=== PATIENT | male | born 1975 | race Caucasian/White ===

== ENCOUNTER → 2020-03-08 | Day surgery (SDC) | payer OTHER ==
[~2020-03-08] MED LIST: B COMPLEX-FOLI1 EACH PO; BACTRIM DS TAB1 EACH PO; CARVEDILOL25 MG PO; DIPHENOXYLATE-1 EACH PO; FLOMAX0.4 MG PO; GLIPIZIDE ER5 MG PO; GLUCERNA237 ML PO; HUMALOG 10100 UNITS/ SC; KEFLEX500 MG PO; LANTUS INS100 UTS/M1 SC; LISINOPRIL5 MG PO; METFORMIN HCL1000 M1 PO; PROZAC40 MG PO; SIMVASTATIN20 MG PO; THERA-M CAPLET1 EACH PO; VITAMIN B-625 MG PO; VITAMIN D31250 MCG PO; ZYVOX600 MG PO
== END | disposition home or self-care (01) ==
LOC: OR 12:22
DX: N13.30 Unspecified hydronephrosis (principal); Z53.8 Procedure and treatment not carried out for other reasons; E11.65 Type 2 diabetes mellitus with hyperglycemia; R33.9 Retention of urine, unspecified; R31.9 Hematuria, unspecified; F41.9 Anxiety disorder, unspecified; I10 Essential (primary) hypertension; Z79.84 Long term (current) use of oral hypoglycemic drugs; Z79.899 Other long term (current) drug therapy
CPT/HCPCS: 82962; J1956; J7030

== ENCOUNTER → 2020-04-19 | Day surgery (SDC) | payer OTHER | END | disposition home or self-care (01) | LOC: OR 11:38 | DX: N13.30 Unspecified hydronephrosis (principal); E66.01 Morbid (severe) obesity due to excess calories; I10 Essential (primary) hypertension; Z79.899 Other long term (current) drug therapy; Z80.3 Family history of malignant neoplasm of breast; Z83.3 Family history of diabetes mellitus | CPT/HCPCS: 82962; C1769; C1894; C2617; J1100; J1956; J2001; J2250; J2405; J2704; J3010; J7030; J7040; J7120; Q9962 ==

== ENCOUNTER 2020-05-19 10:07 | Inpatient (IN) | payer OTHER ==
[~2020-05-19] VITALS: Ht 190.5 cm; Wt 148.3 kg
[~2020-05-19 10:07] MED LIST changes: -B COMPLEX-FOLI1 EACH PO; -BACTRIM DS TAB1 EACH PO; -DIPHENOXYLATE-1 EACH PO; -GLUCERNA237 ML PO; -HUMALOG 10100 UNITS/ SC; -LANTUS INS100 UTS/M1 SC; -SIMVASTATIN20 MG PO; -THERA-M CAPLET1 EACH PO; -VITAMIN B-625 MG PO; -ZYVOX600 MG PO
[2020-05-19 10:41] LABS: HEMOGLOBIN 11.2 gm/dl (14.0-17.5); RED BLOOD COUNT 4.19 M/UL (4.20-5.50); WHITE BLOOD COUNT 19.3 K/UL (4.5-11.0)
[2020-05-19 11:05] LABS: BUN/CREATININE RATIO 13 (0-10)
[2020-05-19] MEDS ORDERED: SIMVASTATIN20 MG PO (12:45)
[2020-05-19 15:40] LABS: BUN/CREATININE RATIO 13 (0-10)
[2020-05-20 04:59] LABS: WHITE BLOOD COUNT 20.1 K/UL (4.5-11.0)
[2020-05-20 05:08] LABS: HEMOGLOBIN 9.2 gm/dl (14.0-17.5); RED BLOOD COUNT 3.49 M/UL (4.20-5.50)
[2020-05-20 22:55] LABS: CAMPYLOBACTER Not Detected (Negative); CLOSTRIDIUM DIFFICILE TOX A/B Not Detected (Negative); PLESIOMONAS SHIGELLOIDES Not Detected (Negative)
[2020-05-20 22:56] LABS: ADENOVIRUS F 40/41 Not Detected (Negative); ASTROVIRUS Not Detected (Negative); CRYPTOSPORIDIUM Not Detected (Negative); E.COLI 0157 Not Detected (Negative); ENTAMOEBA HISTOLYTICA Not Detected (Negative); ENTEROAGGREGATIVE E.COLI (EAEC Not Detected (Negative); ENTEROPATHOGENIC E.COLI (EPEC) Not Detected (Negative); ENTEROTOXIGENIC E.COLI (ETEC) Not Detected (Negative); GIARDIA LAMBLIA Not Detected (Negative); NOROVIRUS GI/GII Not Detected (Negative); ROTOVIRUS A Not Detected (Negative); SALMONELLA Not Detected (Negative); SAPOVIRUS Not Detected (Negative); SHIG/ENTEROINVAS.ECOLI (EIEC) Not Detected (Negative); SHIGA-LIK TOX.PRO.E.COLI (STEC Not Detected (Negative); VIBRIO Not Detected (Negative); VIBRIO CHOLERAE Not Detected (Negative); YERSINIA ENTEROCOLITICA Not Detected (Negative)
[2020-05-21 05:09] LABS: HEMOGLOBIN 9.2 gm/dl (14.0-17.5); RED BLOOD COUNT 3.5 M/UL (4.20-5.50); WHITE BLOOD COUNT 18.3 K/UL (4.5-11.0)
[2020-05-21 05:58] LABS: BUN/CREATININE RATIO 17 (0-10)
[2020-05-22 04:43] LABS: BUN/CREATININE RATIO 12 (0-10)
[2020-05-22 04:50] LABS: HEMOGLOBIN 9.3 gm/dl (14.0-17.5); RED BLOOD COUNT 3.61 M/UL (4.20-5.50); WHITE BLOOD COUNT 17.3 K/UL (4.5-11.0)
[2020-05-23 06:20] LABS: HEMOGLOBIN 9.8 gm/dl (14.0-17.5); RED BLOOD COUNT 3.73 M/UL (4.20-5.50); WHITE BLOOD COUNT 18.1 K/UL (4.5-11.0)
[2020-05-23 06:43] LABS: BUN/CREATININE RATIO 11 (0-10)
[2020-05-24 03:46] LABS: RED BLOOD COUNT 3.41 M/UL (4.20-5.50); WHITE BLOOD COUNT 16.4 K/UL (4.5-11.0)
[2020-05-24 04:40] LABS: BUN/CREATININE RATIO 14 (0-10)
[2020-05-25 06:35] LABS: HEMOGLOBIN 9.5 gm/dl (14.0-17.5); RED BLOOD COUNT 3.65 M/UL (4.20-5.50); WHITE BLOOD COUNT 13.5 K/UL (4.5-11.0)
[2020-05-25 07:00] LABS: BUN/CREATININE RATIO 15 (0-10)
[2020-05-26 03:36] LABS: HEMOGLOBIN 9.2 gm/dl (14.0-17.5); RED BLOOD COUNT 3.55 M/UL (4.20-5.50); WHITE BLOOD COUNT 10.6 K/UL (4.5-11.0)
[2020-05-26 03:59] LABS: BUN/CREATININE RATIO 17 (0-10)
[2020-05-27 04:25] LABS: RED BLOOD COUNT 3.8 M/UL (4.20-5.50); WHITE BLOOD COUNT 10.1 K/UL (4.5-11.0)
[2020-05-27 04:48] LABS: BUN/CREATININE RATIO 15 (0-10)
--- NOTE | 2020-05-27 04:54 | NUR ---
PER [facility], JOHNSON TO GIVE VANCOMYCIN DOSE WITH TROUGH OF 20.8
[2020-05-28 03:42] LABS: HEMOGLOBIN 9.9 gm/dl (14.0-17.5); RED BLOOD COUNT 3.79 M/UL (4.20-5.50); WHITE BLOOD COUNT 10.4 K/UL (4.5-11.0)
[2020-05-28 04:02] LABS: BUN/CREATININE RATIO 17 (0-10)
[2020-05-29 03:26] LABS: RED BLOOD COUNT 3.82 M/UL (4.20-5.50); WHITE BLOOD COUNT 8.6 K/UL (4.5-11.0)
[2020-05-29 03:46] LABS: BUN/CREATININE RATIO 16 (0-10)
[2020-05-30 04:36] LABS: BUN/CREATININE RATIO 21 (0-10)
[2020-05-31 06:08] LABS: BUN/CREATININE RATIO 19 (0-10)
[2020-06-01 09:08] LABS: BUN/CREATININE RATIO 17 (0-10)
[2020-06-01] MEDS ORDERED: ZYVOX600 MG PO (09:35)
[2020-06-01] MEDS ORDERED: THERA-M CAPLET1 EACH PO (09:35)
[2020-06-01] MEDS ORDERED: VITAMIN B-625 MG PO (09:35)
[2020-06-01] MEDS ORDERED: BACTRIM DS TAB1 EACH PO (09:35)
[2020-06-01] MEDS ORDERED: GLUCERNA237 ML PO (09:35)
[2020-06-01] MEDS ORDERED: DIPHENOXYLATE-1 EACH PO (09:47)
[2020-06-01] MEDS ORDERED: HUMALOG 10100 UNITS/ SC (09:47)
[2020-06-01] MEDS ORDERED: LANTUS INS100 UTS/M1 SC (09:47)
[2020-06-01] MEDS ORDERED: B COMPLEX-FOLI1 EACH PO (09:57)
[2020-06-05] MEDS ORDERED: ZYVOX600 MG PO (12:20)
[2020-06-06 07:07] LABS: RED BLOOD COUNT 3.72 M/UL (4.20-5.50); WHITE BLOOD COUNT 7.7 K/UL (4.5-11.0)
[2020-06-06 07:27] LABS: BUN/CREATININE RATIO 21 (0-10)
[2020-06-07 03:12] LABS: HEMOGLOBIN 10.1 gm/dl (14.0-17.5); RED BLOOD COUNT 3.8 M/UL (4.20-5.50); WHITE BLOOD COUNT 6.6 K/UL (4.5-11.0)
[2020-06-07 03:23] LABS: BUN/CREATININE RATIO 23 (0-10)
== END 2020-06-10 14:37 | DRG 872 ==
LOC: ER1 10:07 → PROG CARE 12:54 → MED SURG 4 12:54 → CDU 12:54 → PROG CARE 15:20 → MED SURG 4 05-21 20:00
PROVIDERS: Emergency Medicine; Internal Medicine; ADMIT Internal Medicine
PROC: B24BZZ4 Ultrasonography of Heart with Aorta, Transesophageal (ICD-10-PCS; principal; 2020-05-20)
DX: A41.9 Sepsis, unspecified organism (principal); E87.1 Hypo-osmolality and hyponatremia; N13.6 Pyonephrosis; L03.317 Cellulitis of buttock; N17.9 Acute kidney failure, unspecified; E87.2 Acidosis; Z68.41 Body mass index [BMI] 40.0-44.9, adult; L02.31 Cutaneous abscess of buttock; Z20.822 Contact with and (suspected) exposure to COVID-19; E66.01 Morbid (severe) obesity due to excess calories; R65.20 Severe sepsis without septic shock; I10 Essential (primary) hypertension; E78.5 Hyperlipidemia, unspecified; R80.8 Other proteinuria; D50.9 Iron deficiency anemia, unspecified; R33.9 Retention of urine, unspecified; E86.0 Dehydration; E11.43 Type 2 diabetes mellitus with diabetic autonomic (poly)neuropathy; R19.7 Diarrhea, unspecified; Z79.4 Long term (current) use of insulin; Z87.440 Personal history of urinary (tract) infections; Z83.3 Family history of diabetes mellitus; R53.81 Other malaise; M51.26 Other intervertebral disc displacement, lumbar region
CPT/HCPCS: ECHO; 0240U; 36415; 71045; 72148; 72157; 72158; 72220; 80048; 80053; 80202; 81001; 82272; 82436; 82550; 82553; 82570; 82607; 82962; 83540; 83550; 83605; 83690; 83874; 83935; 84133; 84156; 84207; 84300; 84443; 84484; 85025; 85027; 85610; 85730; 86140; 86850; 86900; 86901; 87040; 87070; 87077; 87086; 87186; 87205; 87507; 93005; 93306; 96365; 96366; 96367; 96375; 97110; 97110-GP-CQ; 97116; 97116-GP-CQ; 97162; 97166; 97530; 97530-GP-CQ; 97535; 99285; A9577; J1335; J1650; J1756; J1885; J2020; J2185; J2405; J2543; J3370; J3415; J7030; J7050; J7070; Q9967